=== PATIENT | male | born 1960 | race Caucasian/White ===

== ENCOUNTER 2021-11-13 12:52 | Emergency (ER) | payer MEDICARE, OTHER ==
[2021-11-13 13:26] LABS: BASOPHIL 1.1 % (0-2); EOSINOPHIL 4.6 % (0-5); LYMPHOCYTE 17.9 % (15-48); MCH 28.9 pg (25.0-31.0); MCHC 34.1 g/dL (32.0-36.0); MCV 84.8 fL (78.0-100.0); MONOCYTE 9.2 % (0-12); NEUTROPHIL 66.7 % (41-80); NRBC 0.3; PLT 350 K/uL (150-400); RBC 5.19 M/uL (4.70-6.00); RDW 14.2 % (11.5-14.0); WBC 7.6 K/uL (4.0-10.5)
[2021-11-13 13:43] LABS: BILIRUBIN NEGATIVE (NEGATIVE); BLOOD NEGATIVE Ery/uL (NEGATIVE); CLARITY CLEAR (CLEAR); COLOR YELLOW (YELLOW); GLUCOSE (U) NORMAL (NORMAL); LEUKOCYTES NEGATIVE Leu/uL (NEGATIVE); NITRITE NEGATIVE (NEGATIVE); PROTEIN NEGATIVE (NEGATIVE); SPECIFIC GRAVITY 1.015 (1.001-1.030); UROBILINOGEN 0.2 mg/dL (0.2-1.0)
[2021-11-13 13:47] LABS: ALBUMIN 3.6 g/dL (3.4-5.0); BILIRUBIN - TOTAL 0.3 mg/dL (0.2-1.0); BUN/CREAT RATIO (CALC) 9.9 RATIO; CREATININE 0.81 mg/dL (0.67-1.17); GLOBULIN (CALCULATION) 3.9 g/dL; POTASSIUM 3.5 mmol/L (3.5-5.1); TOTAL PROTEIN 7.5 g/dL (6.4-8.2)
[2021-11-13 13:55] LABS: LACTIC ACID 0.9 mmol/L (0.4-1.9)
[2021-11-13] MEDS ORDERED: KEFLEX250 MG PO (14:10)
== END 2021-11-13 15:46 | disposition home or self-care (01) ==
LOC: FER 12:52
PROVIDERS: Physician Assistant
DX: M70.22 Olecranon bursitis, left elbow (principal); F17.210 Nicotine dependence, cigarettes, uncomplicated; Z28.311 Partially vaccinated for COVID-19
CPT/HCPCS: 36415; 73080; 80053; 81003; 83605; 85025; 87070; 87205